=== PATIENT | male | born 1985 | race Two or more races ===

== ENCOUNTER 2024-08-09 10:57 | Emergency (ER) | payer OTHER ==
[~2024-08-09] VITALS: Ht 170.2 cm; Wt 95.7 kg
[~2024-08-09 10:57] MED LIST: [UNRECOGNIZED DRUG - OTHER] RECTAL
[2024-08-09] MEDS ORDERED: ATIVAN1 M1 PO (11:33)
[2024-08-09] MEDS ORDERED: COZAAR50 MG PO (11:33)
[2024-08-09] MEDS ORDERED: BENZTROPINE MESY1 MG PO (11:34)
[2024-08-09] MEDS ORDERED: TOPROL XL25 M1 (11:34)
[2024-08-09] MEDS ORDERED: PEPCID AC20 MG (11:34)
[2024-08-09] MEDS ORDERED: GEMFIBROZIL600 MG PO (11:35)
[2024-08-09] MEDS ORDERED: BANOPHEN50 MG PO (11:35)
[2024-08-09] MEDS ORDERED: RESTORIL30 M1 PO (11:35)
[2024-08-09] MEDS ORDERED: CEFTRIAXONE SODIUM 1,000 MG VIAL IM ONE (12:30)
[2024-08-09] MEDS ORDERED: METHYLPREDNISOLONE SOD SUCC 40 MG VIAL IM ONE (12:45)
[2024-08-09 13:35] LABS: HEMATOCRIT 40.2 % (39.0-48.0); HEMOGLOBIN 13.8 g/dL (13-16.00); MEAN CELL VOLUME 90.2 fL (80.0-100.00); MEAN CORPUSCULAR HGB CONC 34.4 g/dl (32.0-36.0); PLATELET COUNT 192 K/uL (150-450); RED BLOOD COUNT 4.46 M/uL (4.00-6.00); RED CELL DISTRIBUTION WIDTH 12.9 % (11.5-14.5)
[2024-08-09] MEDS ORDERED: PEPCID AC20 MG PO (14:38)
== END 2024-08-09 14:54 | disposition home or self-care (01) ==
LOC: ER 10:59
PROVIDERS: General Practice
DX: J02.9 Acute pharyngitis, unspecified (principal); Z20.822 Contact with and (suspected) exposure to COVID-19; I10 Essential (primary) hypertension
CPT/HCPCS: 36415; 96372; 99282; J0696; J3490